=== PATIENT | male | born 1945 | race Caucasian/White ===

== ENCOUNTER → 2018-09-20 | Outpatient (CLI) | payer MEDICARE, OTHER ==
--- NOTE | 2018-09-21 11:54 | RADIOLOGY REPORT (SQ) ---
EXAM DESCRIPTION: PET CT SKULL/THIGH COMPLETED DATE/TIME: 09/20/2018 8:34 pm REASON FOR STUDY: C34.90 MALIGNANT NEOPLASM OF UNSP PART OF UNSP BRONCHUS OR LUNG C34.90 MALIGNANT NEOPLASM OF UNSP PART OF UNSP BRONCHUS OR L COMPARISON: None. RADIONUCLIDE AND DOSE: 11.42 mCi F18 FDG The route of agent administration: Intravenous FASTING BLOOD SUGAR: 178 mg/dl CONTRAST TYPE AND DOSE: No CT contrast given. TECHNIQUE: Blood glucose level was verified. Above dose of FDG was injected intravenously. 2-D seg mented attenuation correction images were obtained from the base of the skull to the midthighs. Nonc ontrast CT images were obtained for attenuation correction and fusion with emission images. CT image s were performed without oral or intravenous contrast and are not sensitive for parenchymal lesions. A series of overlapping emission PET images were obtained. Images reviewed and manipulated at [facility] work station by the radiologist. Images stored on PACS. LIMITATIONS: Patient movement. FINDINGS: HEAD AND NECK: Known brain metastasis not well demonstrated. CHEST: Symmetric uptake in the rotator cuff musculature likely due to patient movement. Right level 2 node measuring 17 x 13 mm and 3.9 SUV. ABDOMEN AND PELVIS: Hypermetabolic focus in segment 8 without corresponding morphologic lesion. 3.6 SUV. Low level uptake in the left iliopsoas and left adductor likely artifact. PROXIMAL LOWER EXTREMITIES: There are 2 hypermetabolic left external iliac chain nodes, the largest 2 .8 x 1.9 cm and 4.5 SUV. BONES: Uptake in the midline sacrum 4.7 SUV without corresponding morphologic lesion. ADDITIONAL CT FINDINGS: 4 cm infrarenal aortic aneurysm. OTHER: Blood pool 1.6 SUV. Liver background 2.0 SUV. IMPRESSION: 1. Hypermetabolic mediastinal node. 2. Hypermetabolic liver lesion without corresponding morphologic abnormality. 3. Hypermetabolic left pelvic nodes. 4. Hypermetabolic sacrum without corresponding morphologic lesion. TECHNICAL DOCUMENTATION: JOB ID: [id number]- All Rights Reserved Reading location - IP/workstation name: [email or web address]
== END ==
LOC: RAD 18:00
PROVIDERS: ATTEND Internal Medicine Medical Oncology
DX: C34.90 Malignant neoplasm of unspecified part of unspecified bronchus or lung (principal)
CPT/HCPCS: 78815; A9552

== ENCOUNTER → 2018-12-28 | Outpatient (CLI) | payer MEDICARE, OTHER ==
--- NOTE | 2018-12-28 09:42 | RADIOLOGY REPORT (SQ) ---
EXAM DESCRIPTION: CT CHEST WITH; CT ABD/PELVIS WITH IV ONLY COMPLETED DATE/TIME: 12/28/2018 9:21 am REASON FOR STUDY: (C34.11)MALIGNANT NEOPLASM OF UPPER LOBE, RIGHT BRONCHUS OR LUNG C34.11 MALIGNANT NEOPLASM OF UPPER LOBE, RIGHT BRONCHUS OR L CONTRAST TYPE AND DOSE: 73 mL Omnipaque 350 RENAL FUNCTION: Creatinine 0.6 COMPARISON: PET-CT dated 09/20/2018 TECHNIQUE: CT scan of the chest performed using helical scanning technique with dynamic intravenous contrast injection. Images reviewed with lung, soft tissue and bone windows. Reconstructed coronal a nd sagittal MPR images reviewed. All images stored on PACS. All CT scanners at this facility use dose modulation, iterative reconstruction, and/or weight based d osing when appropriate to reduce radiation dose to as low as reasonably achievable (ALARA). [facility]: Dose Right [facility]: CareDose [facility]: Dose Right [facility]: [employer] 4D [facility]: J. Hilburn RADIATION DOSE: . LIMITATIONS: None. FINDINGS: AXILLAE: No adenopathy. CHEST WALL: No masses. No subcutaneous air. LUNGS: Bilateral emphysematous changes. Scarring in the right apex. PLEURA: No effusions. No calcifications. THYROID: No masses or significant asymmetry. HILAR AND MEDIASTINAL STRUCTURES: Mediastinal adenopathy described on prior PET-CT has largely resolv ed. AORTA AND GREAT VESSELS: No aneurysm. No dissection. PULMONARY ARTERIES: No identified pulmonary emboli. Study not optimized for the pulmonary arteries. HEART: No pericardial effusion. HARDWARE AND LIFELINES: None. BONES: No significant finding. OTHER: No other significant finding. IMPRESSION: COPD. Previously described mediastinal adenopathy has largely resolved. No evidence of metastatic disease in the chest. COMPARISON: None. RADIATION DOSE: mGy. TECHNIQUE: CT scan of the abdomen and pelvis performed with intravenous and oral contrast using terry miroslava scanning technique with dynamic intravenous contrast injection. Images reviewed with lung, soft tissue and bone windows. Reconstructed coronal and sagittal MPR images reviewed. Delayed images for evaluation of the urinary system also acquired and evaluated. All images stored on PACS. All CT scanners at this facility use dose modulation, iterative reconstruction, and/or weight based d osing when appropriate to reduce radiation dose to as low as reasonably achievable (ALARA). [facility]: Dose Right [facility]: SureCare [facility]: Dose Right [facility]: [employer] 4D [facility]: [employer] Hilburn FINDINGS: LIVER: Normal size. No masses. No dilated ducts. SPLEEN: Normal size. No focal lesions. PANCREAS: No masses. No significant calcifications. No adjacent inflammation or peripancreatic flui d collections. Pancreatic duct not dilated. GALLBLADDER: No identified stones by CT criteria. No inflammatory changes to suggest cholecystitis. ADRENAL GLANDS: Left adrenal fullness. This is unchanged from recent PET. No abnormal metabolic act ivity was noted. This most likely represents hyperplasia. RIGHT KIDNEY AND URETER: Small right renal cyst. No significant calcifications. No hydronephrosis or hydroureter. LEFT KIDNEY AND URETER: 4.5 cm left renal cyst. No significant calcifications. No hydronephrosis or hydroureter. AORTA AND VESSELS: There is a 3.9 x 3.6 cm infrarenal abdominal aortic aneurysm with fairly extensive mural thrombus. This is unchanged from prior PET. RETROPERITONEUM: No retroperitoneal adenopathy, hemorrhage or masses. LARGE AND SMALL BOWEL: Large amount of stool throughout the colon. No obstruction. APPENDIX: Normal. ABDOMINAL WALL: No hernia or masses. PERITONEAL CAVITY: No free air. No free fluid. No peritoneal implants or masses. PELVIS: No mass or free fluid. Normal bladder. Previously described enlarged pelvic lymph nodes hav e resolved. BONES: No significant or acute findings. OTHER: No other significant finding. IMPRESSION: 3.9 x 3.6 cm infrarenal abdominal aortic aneurysm. Please see below for recommended fol low-up. No evidence of metastatic disease in the abdomen or pelvis. TECHNICAL DOCUMENTATION: JOB ID: [id number] Quality ID # [id number]: Final reports with documentation of one or more dose reduction techniques (e.g., Au tomated exposure control, adjustment of the mA and/or kV according to patient size, use of iterative reconstruction technique) 2010 [employer]- All Rights Reserved Reading location - IP/workstation name: [email or web address]
--- NOTE | 2018-12-28 09:42 | RADIOLOGY REPORT (SQ) ---
EXAM DESCRIPTION: CT CHEST WITH; CT ABD/PELVIS WITH IV ONLY COMPLETED DATE/TIME: 12/28/2018 9:21 am REASON FOR STUDY: (C34.11)MALIGNANT NEOPLASM OF UPPER LOBE, RIGHT BRONCHUS OR LUNG C34.11 MALIGNANT NEOPLASM OF UPPER LOBE, RIGHT BRONCHUS OR L CONTRAST TYPE AND DOSE: 73 mL Omnipaque 350 RENAL FUNCTION: Creatinine 0.6 COMPARISON: PET-CT dated 09/20/2018 TECHNIQUE: CT scan of the chest performed using helical scanning technique with dynamic intravenous contrast injection. Images reviewed with lung, soft tissue and bone windows. Reconstructed coronal a nd sagittal MPR images reviewed. All images stored on PACS. All CT scanners at this facility use dose modulation, iterative reconstruction, and/or weight based d osing when appropriate to reduce radiation dose to as low as reasonably achievable (ALARA). [facility]: Dose Right [facility]: CareDose [facility]: Dose Right [facility]: [employer] 4D [facility]: [email or web address] RADIATION DOSE: . LIMITATIONS: None. FINDINGS: AXILLAE: No adenopathy. CHEST WALL: No masses. No subcutaneous air. LUNGS: Bilateral emphysematous changes. Scarring in the right apex. PLEURA: No effusions. No calcifications. THYROID: No masses or significant asymmetry. HILAR AND MEDIASTINAL STRUCTURES: Mediastinal adenopathy described on prior PET-CT has largely resolv ed. AORTA AND GREAT VESSELS: No aneurysm. No dissection. PULMONARY ARTERIES: No identified pulmonary emboli. Study not optimized for the pulmonary arteries. HEART: No pericardial effusion. HARDWARE AND LIFELINES: None. BONES: No significant finding. OTHER: No other significant finding. IMPRESSION: COPD. Previously described mediastinal adenopathy has largely resolved. No evidence of metastatic disease in the chest. COMPARISON: None. RADIATION DOSE: mGy. TECHNIQUE: CT scan of the abdomen and pelvis performed with intravenous and oral contrast using terry miroslava scanning technique with dynamic intravenous contrast injection. Images reviewed with lung, soft tissue and bone windows. Reconstructed coronal and sagittal MPR images reviewed. Delayed images for evaluation of the urinary system also acquired and evaluated. All images stored on PACS. All CT scanners at this facility use dose modulation, iterative reconstruction, and/or weight based d osing when appropriate to reduce radiation dose to as low as reasonably achievable (ALARA). [facility]: Dose Right [facility]: SureCare [facility]: Dose Right [facility]: [employer] 4D [facility]: [email or web address] FINDINGS: LIVER: Normal size. No masses. No dilated ducts. SPLEEN: Normal size. No focal lesions. PANCREAS: No masses. No significant calcifications. No adjacent inflammation or peripancreatic flui d collections. Pancreatic duct not dilated. GALLBLADDER: No identified stones by CT criteria. No inflammatory changes to suggest cholecystitis. ADRENAL GLANDS: Left adrenal fullness. This is unchanged from recent PET. No abnormal metabolic act ivity was noted. This most likely represents hyperplasia. RIGHT KIDNEY AND URETER: Small right renal cyst. No significant calcifications. No hydronephrosis or hydroureter. LEFT KIDNEY AND URETER: 4.5 cm left renal cyst. No significant calcifications. No hydronephrosis or hydroureter. AORTA AND VESSELS: There is a 3.9 x 3.6 cm infrarenal abdominal aortic aneurysm with fairly extensive mural thrombus. This is unchanged from prior PET. RETROPERITONEUM: No retroperitoneal adenopathy, hemorrhage or masses. LARGE AND SMALL BOWEL: Large amount of stool throughout the colon. No obstruction. APPENDIX: Normal. ABDOMINAL WALL: No hernia or masses. PERITONEAL CAVITY: No free air. No free fluid. No peritoneal implants or masses. PELVIS: No mass or free fluid. Normal bladder. Previously described enlarged pelvic lymph nodes hav e resolved. BONES: No significant or acute findings. OTHER: No other significant finding. IMPRESSION: 3.9 x 3.6 cm infrarenal abdominal aortic aneurysm. Please see below for recommended fol low-up. No evidence of metastatic disease in the abdomen or pelvis. TECHNICAL DOCUMENTATION: JOB ID: [id number] Quality ID # [id number]: Final reports with documentation of one or more dose reduction techniques (e.g., Au tomated exposure control, adjustment of the mA and/or kV according to patient size, use of iterative reconstruction technique) 2010 [employer]- All Rights Reserved Reading location - IP/workstation name: [email or web address]
--- NOTE | 2018-12-28 12:09 | RADIOLOGY REPORT (SQ) ---
EXAM DESCRIPTION: MRI HEAD COMBO COMPLETED DATE/TIME: 12/28/2018 9:53 am REASON FOR STUDY: (C34.11)MALIGNANT NEOPLASM OF UPPER LOBE, RIGHT BRONCHUS OR LUNG C34.11 MALIGNANT NEOPLASM OF UPPER LOBE, RIGHT BRONCHUS OR L COMPARISON: None. TECHNIQUE: Multiplanar imaging includes noncontrasted T1, T2, FLAIR, diffusion with ADC map and post gadolinium contrast T1 sequences. Images stored on PACS. CONTRAST TYPE AND DOSE: 15 mL Dotarem. RENAL FUNCTION: Not indicated. ACR Type II contrast agent associated with few, if any, unconfounded cases of NSF LIMITATIONS: None. FINDINGS: ANATOMY: No anomalies. Normal vascular flow voids. Pituitary fossa normal. CSF SPACES: Normal in size and contour. No hemorrhage. CEREBRUM: Sulci and gyri normal in size and contour. Scattered small areas of increased white matter signal on FLAIR imaging. No evidence of hemorrhage, mass, or extraaxial fluid collection. A couple of small lacunar infarcts is seen on the left. There appear to be some small lacunar infarcts in the cerebellum. There is a small enhancing lesion in the medial aspect of the right lobe of the cerebel lum. There is another tiny enhancing lesion in the left lobe of the cerebellum on the same image, im age 5 series 10. There appears be a tiny enhancing cortical lesion on the left on image 18 series 10 . POSTERIOR FOSSA: See above. DIFFUSION IMAGING: Negative for acute or subacute infarction. ORBITS: No masses. Globes normal. PARANASAL SINUSES: No fluid levels. Mucosa normal. OTHER: No other significant finding. IMPRESSION: Chronic microvascular ischemia. No acute infarction. There are some very small enhanci ng lesions cerebral cortex and in the cerebellum concerning for metastatic disease. EVIDENCE OF ACUTE STROKE: NO. TECHNICAL DOCUMENTATION: JOB ID: [id number] [employer]- All Rights Reserved Reading location - IP/workstation name: [email or web address]
== END ==
LOC: RAD 08:35
PROVIDERS: ATTEND Nurse Practitioner Family
DX: C34.11 Malignant neoplasm of upper lobe, right bronchus or lung (principal); J44.9 Chronic obstructive pulmonary disease, unspecified; I71.4 Abdominal aortic aneurysm, without rupture
CPT/HCPCS: 82565; 70553; 71260; 74177; A9576

== ENCOUNTER → 2019-03-31 | Outpatient (CLI) | payer MEDICARE, OTHER ==
--- NOTE | 2019-03-31 12:12 | RADIOLOGY REPORT (SQ) ---
EXAM DESCRIPTION: CT CHEST WITH COMPLETED DATE/TIME: 03/31/2019 8:54 am REASON FOR STUDY: C34.11 MALIGNANT NEOPLASM OF UPPER LOBE, RIGHT BRONCHUS OR LUNG C34.11 MALIGNANT NEOPLASM OF UPPER LOBE, RIGHT BRONCHUS OR L COMPARISON: 12/28/2018 TECHNIQUE: CT scan of the chest performed using helical scanning technique with dynamic intravenous contrast injection. Images reviewed with lung, soft tissue and bone windows. Reconstructed coronal and sagittal MPR and MIP images reviewed. All images stored on PACS. All CT scanners at this facility use dose modulation, iterative reconstruction, and/or weight based d osing when appropriate to reduce radiation dose to as low as reasonably achievable (ALARA). [facility]: Dose Right [facility]: CareDose [facility]: Dose Right [facility]: [employer] 4D [facility]: [employer] CONTRAST TYPE AND DOSE: 69 mL Omnipaque 350- low osmolar. RENAL FUNCTION: Creatinine 0.6 RADIATION DOSE: . LIMITATIONS: None. FINDINGS: LUNGS AND PLEURA: Pleural/parenchymal scarring in the right apex. Mild centrilobular emph ysema. No infiltrate, effusion, or mass. HILAR AND MEDIASTINAL STRUCTURES: No identified masses or abnormal nodes. HEART AND VASCULAR STRUCTURES: No aneurysm or dissection. No central pulmonary emboli. No pericardi al effusion. HARDWARE: Right-sided catheter with the tip in the superior vena cava. UPPER ABDOMEN: See separate report of the CT of the abdomen. THYROID AND OTHER SOFT TISSUES: No masses. No adenopathy. BONES: No significant finding. OTHER: No other significant finding. IMPRESSION: No evidence of recurrent or metastatic neoplasm. Mild pulmonary emphysema. TECHNICAL DOCUMENTATION: JOB ID: [id number] Quality ID # 436: Final reports with documentation of one or more dose reduction techniques (e.g., Au tomated exposure control, adjustment of the mA and/or kV according to patient size, use of iterative reconstruction technique) 2010 [employer]- All Rights Reserved Reading location - IP/workstation name: [email or web address]
--- NOTE | 2019-03-31 12:58 | RADIOLOGY REPORT (SQ) ---
EXAM DESCRIPTION: CT ABD/PELVIS WITH IV ONLY COMPLETED DATE/TIME: 03/31/2019 8:53 am REASON FOR STUDY: C34.11 MALIGNANT NEOPLASM OF UPPER LOBE, RIGHT BRONCHUS OR LUNG C34.11 MALIGNANT NEOPLASM OF UPPER LOBE, RIGHT BRONCHUS OR L COMPARISON: None. TECHNIQUE: CT scan of the abdomen and pelvis performed using helical scanning technique with dynamic intravenous contrast injection. No oral contrast. Images reviewed with lung, soft tissue, and bone windows. Reconstructed coronal and sagittal MPR images reviewed. Delayed images for evaluation of the urinary system also acquired. All images stored on PACS. All CT scanners at this facility use dose modulation, iterative reconstruction, and/or weight based d osing when appropriate to reduce radiation dose to as low as reasonably achievable (ALARA). [facility]: Dose Right [facility]: CareDose [facility]: Dose Right [facility]: Teradose 4D [facility]: [employer] CONTRAST TYPE AND DOSE: Contrast/concentration: Isovue 350.00 mg/ml; Total Contrast Delivered: 69.0 ml; Total Saline Delivered: 65.0 ml RENAL FUNCTION: Creatinine 0.6 milligrams/deciliter. RADIATION DOSE: CT Rad equipment meets quality standard of care and radiation dose reduction techniq ues were employed. CTDIvol: 4.5 - 6.8 mGy. DLP: 802 mGy-cm.. LIMITATIONS: None. FINDINGS: LOWER CHEST: Refer to the separate report of the CT of the chest. LIVER: The morphology of the liver is non cirrhotic. There are 2 new hypodense hepatic lesions: a 1 .8 x 1.9 cm mass within segment 4A and a 9 x 9 mm mass within segment 3 (image 20 of series 3). The portal and hepatic veins are patent. SPLEEN: The spleen is normal in size. PANCREAS: There is no acute abnormality of the pancreas. GALLBLADDER: No abnormality that is apparent on CT. ADRENAL GLANDS: The diffuse nodular enlargement of the left adrenal gland is unchanged. There is no adrenal mass. RIGHT KIDNEY AND URETER: 1.4 x 1.3 cm cyst that projects in the posterior cortex of the upper pole. There is no solid mass, hydronephrosis, nephrolithiasis, hydroureter or ureterolithiasis. LEFT KIDNEY AND URETER: 3.9 x 3.2 cm cyst within the interpolar portion of the kidney. There is no s olid mass, hydronephrosis, nephrolithiasis, hydroureter or ureterolithiasis. AORTA AND VESSELS: Fusiform aneurysm of the infrarenal abdominal aorta with eccentric mural thrombus ; the aneurysm measures 4.1 x 4 cm (unchanged from the prior CT). RETROPERITONEUM: 10 mm short axis left common iliac lymph nodes that has increased in size from 12/28. There is no retroperitoneal hemorrhage. BOWEL AND PERITONEAL CAVITY: No bowel obstruction, bowel wall thickening, or pericolonic/ perienteric inflammation. No mesenteric adenopathy, free intraperitoneal fluid, or mesenteric/ omental inflamma tion. APPENDIX: Normal. PELVIS: The urinary bladder is nondistended. The prostate gland measures 3.9 cm in transverse diamet er. There are enlarged right superficial inguinal (11 mm short axis, image 85 of series 3) and left deep inguinal (9 mm and 12 mm short axis, images 69 and 73 of series 3) lymph nodes that have increas ed in size from 12/28/2018. ABDOMINAL WALL: No masses or hernias. BONES: Stable sclerotic lesion within the superior endplate of the S1 vertebral body that demonstrate d increased metabolic uptake on the correlative PET. OTHER: No other finding. IMPRESSION: 1. The findings (2 new hypodense hepatic lesions and enlarging left common iliac, right superficial inguinal, and left deep inguinal adenopathy) are consistent with progression of metastati c disease. 2. Unchanged fusiform aneurysm of the infrarenal abdominal aorta. TECHNICAL DOCUMENTATION: JOB ID: [id number] Quality ID # 436: Final reports with documentation of one or more dose reduction techniques (e.g., Au tomated exposure control, adjustment of the mA and/or kV according to patient size, use of iterative reconstruction technique) 2010 [employer]- All Rights Reserved Reading location - IP/workstation name: [email or web address]
--- NOTE | 2019-03-31 13:36 | RADIOLOGY REPORT (SQ) ---
EXAM DESCRIPTION: MRI HEAD COMBO COMPLETED DATE/TIME: 03/31/2019 10:01 am REASON FOR STUDY: C34.11 MALIGNANT NEOPLASM OF UPPER LOBE, RIGHT BRONCHUS OR LUNG C34.11 MALIGNANT NEOPLASM OF UPPER LOBE, RIGHT BRONCHUS OR L COMPARISON: MRI brain 12/28/2018 PET-CT 09/20/2018 TECHNIQUE: Multiplanar imaging includes noncontrasted T1, T2, FLAIR, diffusion with ADC map and post gadolinium contrast T1 sequences. Images stored on PACS. CONTRAST TYPE AND DOSE: 10 mL Dotarem. RENAL FUNCTION: Not indicated. ACR Type II contrast agent associated with few, if any, unconfounded cases of NSF LIMITATIONS: Motion artifact throughout the study FINDINGS: ANATOMY: No anomalies. Normal vascular flow voids. Pituitary fossa normal. CSF SPACES: Normal in size and contour. No hemorrhage. CEREBRUM: No MR evidence of brain parenchymal metastatic disease on postcontrast axial T1 weighted im ages. Coronal images are degraded by motion artifact. No MR evidence of acute ischemic change, acute intracranial hemorrhage, mass effect, or midline shift . POSTERIOR FOSSA: Old lacunar infarct left cerebellar hemisphere. On the post contrasted image 09/02, there are 2 tiny peripheral rim enhancing lesions in the posterior right and posterior left cerebella r hemispheres worrisome for metastatic disease measuring about 5 mm in size. Smaller non rim enhanci ng nodules are seen elsewhere in the inferior cerebellar hemispheres on axial image 5. This is worri some for metastatic disease given history of lung cancer. DIFFUSION IMAGING: Negative for acute or subacute infarction. ORBITS: No masses. Globes normal. PARANASAL SINUSES: No fluid levels. Mucosa normal. OTHER: Gradient echo T2 weighted images demonstrate multiple foci of susceptibility artifact in the c erebellar hemispheres which correlate with the areas of enhancement on T1 post contrasted images. Ag ain this is worrisome for posterior fossa metastatic disease. IMPRESSION: Enhancing less than 5 mm nodules in the cerebellum worrisome for metastatic disease give n history of small cell lung cancer No MR evidence of acute large territory ischemic change, acute intracranial hemorrhage mass effect or midline shift. EVIDENCE OF ACUTE STROKE: NO. TECHNICAL DOCUMENTATION: JOB ID: [id number] [employer]- All Rights Reserved Reading location - IP/workstation name: [email or web address]
== END ==
LOC: RAD 08:06
PROVIDERS: ATTEND Physician Assistant Medical
DX: C34.11 Malignant neoplasm of upper lobe, right bronchus or lung (principal)
CPT/HCPCS: 82565; 70553; 71260; 74177; A9576; J1642

== ENCOUNTER → 2019-07-04 | Outpatient (CLI) | payer MEDICARE, OTHER ==
--- NOTE | 2019-07-04 09:56 | RADIOLOGY REPORT (SQ) ---
EXAM DESCRIPTION: CT CHEST WITH; CT ABD/PELVIS WITH IV ONLY IMAGES COMPLETED DATE/TIME: 07/04/2019 9:20 am; 07/04/2019 9:19 am REASON FOR STUDY: LUNG CANCER (C34.11) C34.11 MALIGNANT NEOPLASM OF UPPER LOBE, RIGHT BRONCHUS OR L CONTRAST TYPE AND DOSE: contrast/concentration: Isovue 350.00 mg/ml; Total Contrast Delivered: 78.0 ml; Total Saline Delivered: 67.0 ml RENAL FUNCTION: Creatinine 0.6 COMPARISON: None. TECHNIQUE: CT scan of the chest performed using helical scanning technique with dynamic intravenous contrast injection. Images reviewed with lung, soft tissue and bone windows. Reconstructed coronal a nd sagittal MPR images reviewed. All images stored on PACS. All CT scanners at this facility use dose modulation, iterative reconstruction, and/or weight based d osing when appropriate to reduce radiation dose to as low as reasonably achievable (ALARA). [facility]: Dose Right [facility]: CareDose [facility]: Dose Right [facility]: Teradose 4D [facility]: Smart Crysalin RADIATION DOSE: CT Rad equipment meets quality standard of care and radiation dose reduction techniq ues were employed. CTDIvol: 3.7 mGy. DLP: 192 mGy-cm. . LIMITATIONS: None. FINDINGS: AXILLAE: There is a new 10.4 mm right axillary lymph node. This demonstrates decreased at tenuation centrally. Metastatic disease cannot be excluded. CHEST WALL: No masses. No subcutaneous air. LUNGS: Diffuse small miliary nodules in the left lower lobe. There is focal dense consolidation whic h is pleural-based as well. This could represent infectious or inflammatory process. Neoplasm canno t be excluded. Mild stable bilateral emphysematous changes. Postobstructive pneumonia cannot be exc luded. Further evaluation with bronchoscopy is recommended. PLEURA: There is a small left pleural effusion. THYROID: No masses or significant asymmetry. HILAR AND MEDIASTINAL STRUCTURES: Extensive mediastinal adenopathy. A single node is measured at 2.1 x 2.4 cm consistent with progression in disease. Previously it node measured 1.1 cm. There are add itional small prevascular and left hilar lymph nodes consistent with metastatic disease. AORTA AND GREAT VESSELS: No aneurysm. No dissection. PULMONARY ARTERIES: No identified pulmonary emboli. Study not optimized for the pulmonary arteries. HEART: No pericardial effusion. HARDWARE AND LIFELINES: [id number] is in place. Tip of the catheter overlies the SVC. BONES: No significant finding. OTHER: No other significant finding. IMPRESSION: 1. Numerous miliary nodules in the left lung base along with focal air consolidation wh ich could represent infectious or inflammatory process. Neoplasm cannot be excluded. 2. Increasing mediastinal and left hilar adenopathy consistent with neoplasm. COMPARISON: None. RADIATION DOSE: CT Rad equipment meets quality standard of care and radiation dose reduction techniq ues were employed. CTDIvol: 3.7 mGy. DLP: 192 mGy-cm. mGy. TECHNIQUE: CT scan of the abdomen and pelvis performed with intravenous and oral contrast using terry miroslava scanning technique with dynamic intravenous contrast injection. Images reviewed with lung, soft tissue and bone windows. Reconstructed coronal and sagittal MPR images reviewed. Delayed images for evaluation of the urinary system also acquired and evaluated. All images stored on PACS. All CT scanners at this facility use dose modulation, iterative reconstruction, and/or weight based d osing when appropriate to reduce radiation dose to as low as reasonably achievable (ALARA). [facility]: Dose Right [facility]: SureCare [facility]: Dose Right [facility]: Teradose 4D [facility]: [employer] FINDINGS: LIVER: Hepatic lesions previously described have increased in size. There is a new 9.2 mm nodule in the left lobe anteriorly best demonstrated on series 3, image 11. There is some mild intr ahepatic biliary ductal dilatation new from prior study as well. The largest lesion is in the right lobe and measures 2.9 x 3.1 cm. SPLEEN: Normal size. No focal lesions. PANCREAS: No masses. No significant calcifications. No adjacent inflammation or peripancreatic flui d collections. Pancreatic duct not dilated. GALLBLADDER: No identified stones by CT criteria. No inflammatory changes to suggest cholecystitis. ADRENAL GLANDS: Stable in appearance. Fullness on the left is most likely related to hyperplasia. RIGHT KIDNEY AND URETER: No solid masses. Simple right renal cyst is again noted. No significant c alcifications. No hydronephrosis or hydroureter. LEFT KIDNEY AND URETER: No solid masses. Simple left renal cyst is again noted. No significant miroslava cifications. No hydronephrosis or hydroureter. AORTA AND VESSELS: Grossly stable 4.1 x 4.0 cm infrarenal abdominal aortic aneurysm. RETROPERITONEUM: New 10.7 mm periaortic lymph node best demonstrated on series 3, image 46. Metastat ic disease is suspected. LARGE AND SMALL BOWEL: No dilatation. No masses. No wall thickening. APPENDIX: Normal. ABDOMINAL WALL: Focal subcutaneous nodule is demonstrated posteriorly on the left measured at 1.3 cm. This is new from prior study consistent with metastatic disease. This is best demonstrated on seri es 3, image 34. PERITONEAL CAVITY: No free air. No free fluid. No peritoneal implants or masses. PELVIS: Increasing bilateral inguinal and pelvic sidewall adenopathy. There is a necrotic 2.5 cm lym ph node in the right inguinal region. BONES: No significant or acute findings. OTHER: No other significant finding. IMPRESSION: Increasing metastatic disease as described. There is involvement in the liver, periaort ic region and increasing bilateral pelvic adenopathy. There is a new subcutaneous nodule in the left flank consistent with metastatic disease. Stable infrarenal abdominal aortic aneurysm measured at 4.1 x 4.0 cm. TECHNICAL DOCUMENTATION: JOB ID: [id number] Quality ID # [id number]: Final reports with documentation of one or more dose reduction techniques (e.g., Au tomated exposure control, adjustment of the mA and/or kV according to patient size, use of iterative reconstruction technique) 2010 [employer]- All Rights Reserved Reading location - IP/workstation name: [email or web address]
--- NOTE | 2019-07-04 10:53 | RADIOLOGY REPORT (SQ) ---
EXAM DESCRIPTION: MRI HEAD COMBO IMAGES COMPLETED DATE/TIME: 07/04/2019 10:32 am REASON FOR STUDY: LUNG CANCER (C34.11) C34.11 MALIGNANT NEOPLASM OF UPPER LOBE, RIGHT BRONCHUS OR L COMPARISON: 03/31/2019 TECHNIQUE: Multiplanar imaging includes noncontrasted T1, T2, FLAIR, diffusion with ADC map and post gadolinium contrast T1 sequences. Images stored on PACS. CONTRAST TYPE AND DOSE: 10 mL mL Prohance. RENAL FUNCTION: Not indicated. ACR Type II contrast agent associated with few, if any, unconfounded cases of NSF LIMITATIONS: None. FINDINGS: ANATOMY: No anomalies. Normal vascular flow voids. Pituitary fossa normal. CSF SPACES: Normal in size and contour. No hemorrhage. CEREBRUM: Extensive periventricular and subcortical white matter changes consistent with small vessel disease. Numerous small enhancing nodules consistent with increasing metastatic disease. This is p resent in the cerebellar hemispheres an both cerebral hemispheres and the number of lesions have incr eased significantly since prior study. The lesions have increased in size as well. POSTERIOR FOSSA: Numerous metastatic foci increased in number and size since prior study. DIFFUSION IMAGING: Negative for acute or subacute infarction. ORBITS: No masses. Globes normal. PARANASAL SINUSES: No fluid levels. Mucosa normal. OTHER: No other significant finding. IMPRESSION: Extensive metastatic disease throughout both cerebral hemispheres in both cerebellar hem ispheres. The metastatic disease has increased in number and size since prior study. There is under lying small vessel ischemic changes. No evidence of acute ischemic event. EVIDENCE OF ACUTE STROKE: NO. TECHNICAL DOCUMENTATION: JOB ID: [id number] 2010 [employer]- All Rights Reserved Reading location - IP/workstation name: [email or web address]
== END ==
LOC: RAD 08:14
PROVIDERS: ATTEND Internal Medicine
DX: C34.11 Malignant neoplasm of upper lobe, right bronchus or lung (principal)
CPT/HCPCS: 82565; 70553; 71260; 74177; A9576; J1642